=== PATIENT | male | born 1990 | race Caucasian/White ===

== ENCOUNTER 2017-12-23 17:28 | Inpatient (IN) | payer BC, OTHER ==
[~2017-12-23] VITALS: Ht 180.3 cm; Wt 72.1 kg
[2017-12-23] MEDS ORDERED: MAG HYDROX/AL HYDROX/SIMETH 30 ML LIQUID UDC PO PRN (18:30)
[2017-12-23] MEDS ORDERED: MIRALAX 17 GM POWD.PACK PO PRN (18:30)
[2017-12-23] MEDS ORDERED: BUPRENORPHINE HCL 2 MG TAB.SUBL SL PRN (18:30)
[2017-12-23] MEDS ORDERED: LORAZEPAM 2 MG/1 ML VIAL IM PRN (18:30)
[2017-12-23] MEDS ORDERED: DICYCLOMINE HCL 20 MG TABLET PO PRN (18:30)
[2017-12-23] MEDS ORDERED: ONDANSETRON 4 MG/2 ML VIAL IM PRN (18:30)
[2017-12-23] MEDS ORDERED: ONDANSETRON ODT 4 MG TAB.RAPDIS SL PRN (18:30)
[2017-12-23] MEDS ORDERED: ACETAMINOPHEN 325 MG TABLET PO PRN (18:30)
[2017-12-23] MEDS ORDERED: MAGNESIUM HYDROXIDE 30 ML LIQUID UDC PO PRN (18:30)
[2017-12-23] MEDS ORDERED: LOPERAMIDE HCL 2 MG CAPSULE PO PRN ×2 (18:30)
[2017-12-23] MEDS ORDERED: LORAZEPAM 1 MG TABLET PO PRN ×2 (18:30)
[2017-12-23 19:02] LABS: ETHANOL < 3 MG/DL (0-0)
[2017-12-23 19:07] LABS: ALANINE AMINOTRANSFERASE 34 U/L (16-63); ALKALINE PHOSPHATASE 94 U/L (50-136); ASPARTATE AMINOTRANSFERASE 21 U/L (15-37); BILIRUBIN,TOTAL 0.2 mg/dL (0.2-1.0); CARBON DIOXIDE 33 mmol/L (21-32); CHLORIDE 104 mmol/L (98-107); GLUCOSE 99 mg/dL (74-106); MAGNESIUM 1.9 mg/dL (1.8-2.4); POTASSIUM 4.4 mmol/L (3.5-5.1); TOTAL PROTEIN, SERUM 6.9 g/dL (6.4-8.2); UREA NITROGEN, BLOOD 14 mg/dL (7-18)
[2017-12-23 19:13] LABS: *AMPHETAMINE, URINE NEGATIVE (NEGATIVE); *BARBITURATE, URINE POSITIVE (NEGATIVE); *CANNABINOID, URINE NEGATIVE (NEGATIVE); *COCCAINE, URINE NEGATIVE (NEGATIVE); *OPIATE, URINE NEGATIVE (NEGATIVE); *PHENCYCLIDINE SCREEN,URINE NEGATIVE (NEGATIVE); BASOPHILS % (AUTO) 0.4 % (0.0-2.0); EOSINOPHILS # (AUTO) 0.2 K/uL (0.0-0.7); EOSINOPHILS % (AUTO) 2.3 % (0.0-7.0); HEMATOCRIT 46.1 % (36.7-47.1); HEMOGLOBIN 15.6 g/dL (12.5-16.3); LYMPHOCYTES # (AUTO) 2.1 K/uL (20.0-40.0); MEAN CORPUSCULAR HEMOGLOBIN 30.6 uug (23.8-33.4); MEAN CORPUSCULAR HGB CONC 34 g/dL (32.5-36.3); MEAN CORPUSCULAR VOLUME 90.6 fL (73.0-96.2); MONOCYTES # (AUTO) 0.5 K/uL (2.0-10.0); MONOCYTES % (AUTO) 5.6 % (0.0-11.0); NEUTROPHILS # (AUTO) 6.7 K/uL (1.8-8.9); NEUTROPHILS % (AUTO) 69.7 % (38.5-71.5); PLATELET COUNT (AUTO) 156 K/uL (152-348); RED BLOOD CELL COUNT(AUTO) 5.09 MIL/uL (4.06-5.63); WHITE BLOOD COUNT (AUTO) 9.6 K/uL (3.6-10.2)
[2017-12-23 19:17] LABS: THYROID STIMULATING HORMONE 2.055 mIU/mL (0.358-3.740)
--- NOTE | 2017-12-23 19:21 | NUR ---
PRE-ADMISSION NOTE RECEIVED PT AT INTAKE AT 1827 ON 12/23/17. INITIAL VS WERE BP: 107/73, HR: 94, RR: 18, O2 SAT: 96%, T: 98.6. PT IS SOFT SPOKEN, APPEARS HIGHLY ANXIOUS, DIAPHORETIC, HAS FACIAL FLUSHING, VOLUNTARILY SHAKING HIS LEGS, PT STATES DUE TO ANXIETY. PT REPORTS CHILLS, COLD/HOT SWEATS, RESTLESSNESS, BODY ACHES, ANXIETY. PT REPORTS HAVING BACK AND KNEE PAIN 06/22. PT IS THE PRIMARY SOURCE OF INFORMATION. PT IS FULLY AMBULATORY. PT STATES HE IS ALLERGIC TO PCN- BODY HIVES, AND TRAZODONE- SVT. PT REPORTS HAVING A MEDICAL HX OF HASHIMOTOS THYROIDITIS, INAPPROPRIATE SINUS TACHYCARDIA, INSOMNIA. PT REPORTS FATHER HAD A ETOH HX OF SUBSTANCE ABUSE, GRAVES DX, HTN. MOM HAS HYPOTHYROIDISM. PT HAS 3 BROTHERS, ONE BROTHER HAS SCLERODERMA. PT STATES DR. NUNES IS HIS PCP. PT REPORTS NO HX OF SZ. PT STATES THIS IS HIS SECOND TIME IN TREATMENT, FIRST TX WAS IN AT [facility] IN [place]. PT STATES THE LONGEST SOBRIETY WAS 4 MONTHS UP UNTIL AT MONTH AGO WHEN HE RELASPED. PT REPORTS HE WAS USING OPIATES AND BENZOS ON A DAILY BASIS FOR A MONTH. HE TRIED TO QUIT WITH THE HELP OF A PHYSICIAN WHO PRESCRIBED HIM SUBUTEX AND PHENOBARBITAL AND HAS BEEN USING FOR 6 DAYS BEFORE COMING TO [facility] WITHOUT RELIEF FROM W/D. SUBSTANCE USE HX: 1. OPIATES- COUNTERFEIT OXYCODONE, FENTANYL BEING ONE OF THE INGREDIENT USED; SNORTING, 10-15 PILLS DAILY FOR 1 MONTH. FIRST USED OPIATES AT AGE 23 Y/O. 2. BENZO- XANAX 8 MG DAILY FOR 1 MONTH. FIRST STARTED USING RECENTLY IN 2016. WILL GIVE ALL PERTINENT INFORMATION AND ENDORSEMENT TO FILLER WIPER NURSE.
[2017-12-23] MEDS: LORAZEPAM 1 MG TABLET PO SCH ×2 (19:25→22:16)
--- NOTE | 2017-12-23 19:30 | NUR ---
ADMISSION NOTE Pt is a 27 y/o male admitted today for opiate and benzo withdrawal. Intake assessment and skin/body check completed by day shift nurse. Pt is full code, allergic to PCN and Trazodone, regular diet and on fall/seizure precautions. Pt reports PMH of IST (Inappropriate sinus tachycardia), Rheumatoid arthritis, melany's thyroiditis and insomnia. Denies being hospitalized or in retirement in past 30 days, does not qualify for MRSA swab. Pt smokes 0.5-1 pack daily. Pt brought the following home medications: Mirtazapine, gabapentin, hydroxyzine pamoate, diltiezam, hydrochloroquine and rozerem. Pt reports that he was in a detox facility [facility] in [place] and given detox medications Subutex, Phenobarbital and Klonopin between December 17-2017. Pt states he was d/c last night and was sent to [facility] treatment facility but then was referred to further detox assistance d/t continued withdrawal S/S. Pt reports having 4 months sober then relapsing a week ago. Pt provided UDS and lab work. Substance History is as follows: 1. Oxycodone with fentanyl pills via nasal inhalation 300-400 mg daily, last intake on 12/16/17, at this rate for 3 weeks. 2. Xanax PO 8 mg daily, last intake of 12/16/17, at this rate for 3 weeks. Pt reports the following family hx: Father-ETOH and graves disese, HTN, Mother-hypothyroid, brother-scleroderma. Pt reports treatment history x 2 at [facility] in [place] between December 17 and in July 2017. 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 Pt is A&O x 4, ambulatory with steady gait, denies SI/HI. Pt presents with restlessness, anxiety, agitation, depressed affect, body aches 6/10, intermittent nausea, difficulty sleeping, chills, cold sweats, dysphoria and anhedonia. Skin intact, no edema noted. PERRLA. Respirations even and unlabored. Lung sounds clear. Denies chest pain or SOB. Abdomen is soft, non-tender. Bowel sounds active in all 4 quadrants. Safety measures in place, side rails up x 2, bed locked. Call light within reach. Medications due. Will continue to monitor.
[2017-12-23 20:00] VITALS: BP 109/77
[2017-12-23] MEDS: CLONIDINE HCL 0.1 MG TABLET PO PRN (21:41)
[2017-12-23] MEDS: GABAPENTIN 300 MG CAPSULE PO SCH (21:41)
[2017-12-23] MEDS: METHOCARBAMOL 750 MG TABLET PO PRN (21:41)
[2017-12-23] MEDS: diphenhydrAMINE 50 MG CAPSULE PO PRN (21:41)
--- NOTE | 2017-12-23 21:41 | NUR ---
PRN ROBAXIN, BENADRYL AND CLONIDINE ADMINISTRATION Pt reports body aches 6/10 and presents with restlessness, anxiety, agitation, sweats and chills. BP 109/77 HR 93. Pt also requests sleep aid. Safety measures in place. Call light within reach. Will continue to monitor.
--- NOTE | 2017-12-23 22:41 | NUR ---
PRN ROBAXIN, BENADRYL AND CLONIDINE REASSESSMENT Pt laying in bed with eyes closed. Respirations even and unlabored. Safety measures in place. Call light within reach. Will continue to monitor.
[2017-12-24] VITALS (8 sets, daily range): BP systolic 98–122; BP diastolic 58–78
--- NOTE | 2017-12-24 | NUR ---
COWS/CIWA DEFERRED Pt laying in bed with eyes closed, COWS/CIWA deferred, to be assessed when pt is awake per orders. Respirations even and unlabored. Safety measures in place. Call light within reach. Will continue to monitor.
[2017-12-24] MEDS ORDERED: GABA-536 PO (02:26)
[2017-12-24] MEDS ORDERED: METH-406 PO ×2 (02:26→20:27)
[2017-12-24] MEDS ORDERED: HYDR200T4 PO (02:26)
[2017-12-24] MEDS ORDERED: MIRT30TA7 PO (02:26)
[2017-12-24] MEDS ORDERED: HYDR50CA5 PO (02:26)
[2017-12-24] MEDS ORDERED: DILT240C2 PO (02:26)
[2017-12-24] MEDS ORDERED: RAME8TAB15 PO (02:26)
[2017-12-24] MEDS: IBUPROFEN 600 MG TABLET PO PRN ×2 (05:08→20:50)
[2017-12-24] MEDS: CLONIDINE HCL 0.1 MG TABLET PO PRN ×2 (05:09→20:49)
--- NOTE | 2017-12-24 05:09 | NUR ---
PRN EDILIA, MOTRIN, ATIVAN 1 MG, CLONIDINE ADMINISTRATION Pt presents with stomach cramps, generalized body pain, chills, sweats, restlessness, difficulty sleeping and agitation. CIWA 9. Safety measures in place. Call light within reach. Will continue to monitor.
--- NOTE | 2017-12-24 06:09 | NUR ---
PRN BENTYL, MOTRIN, ATIVAN 1 MG AND CLONIDINE REASSESSMENT Pt is laying in bed with eyes closed. CIWA assessment deferred, to be assessed when pt is awake per orders. Respirations even and unlabored. Safety measures in place. Call light within reach. Will continue to monitor.
--- NOTE | 2017-12-24 07:30 | NUR ---
END OF SHIFT Pt is a 27 y/o male admitted on 12/23/17 for benzo and opiate withdrawal. Pt came in from a detox facility [facility] in [place] and given detox medications Subutex, Phenobarbital and Klonopin between December 17-2017, but came here instead of treatment at [facility] d/t persistent withdrawal S/S. Pt is not on an ordered taper, PRN Ativan and Subutex available. Pt presented with restlessness, anxiety, agitation, depressed affect, body aches 6/10, intermittent nausea, stomach cramps, difficulty sleeping, chills, cold sweats, dysphoria and anhedonia. Pt refused Zofran odt. Pt requested additional blanket d/t chills. Scheduled medications and PRN Robaxin, Benadryl, bentyl, motrin, Ativan 1 mg and clonidine x 2 administered, effective in S/S of withdrawal as verbalized by pt. Last COWS 9 and CIWA 9. Pt slept 6 hours intermittently. Intake 1000 ml, void x 1, stool x 0. Safety measures in place. Call light within reach. Pts needs have been met. Endorsed to day shift nurse.
--- NOTE | 2017-12-24 08:12 | NUR ---
BEGINNING OF SHIFT Patient endorsement report received from signal system testing maintainer nurse, all pertinent information discussed. Patient is a 27 year old male with admitting Dx: Opiate/bzo withdrawal. Patient continues under very close observation, currently with no ongoing taper, but has PRN medications as needed for s/sx of withdrawal. will monitor closely. Per signal system testing maintainer patient with last ciwa score of: 9, last cow score of: 9. Received PRN: Ativan, Robaxin, Benadryl, Clonidine x2, Bentyl and Motrin, per signal system testing maintainer medications were effective, Slept for 6 hours, Fall and seizure precautions observed at all times. Patient received awake, alert and oriented x4, educated regarding plan of care for the day, will continue to monitor closely. safety measures in place.
[2017-12-24] MEDS ORDERED: TUBERCULIN,PURIF.PROT.DERIV. 5 TU/0.1 ML TEST ID ONE (09:00)
[2017-12-24] MEDS ORDERED: LORAZEPAM 1 MG TABLET PO SCH (09:00)
[2017-12-24] MEDS: GABAPENTIN 300 MG CAPSULE PO SCH ×3 (09:03→20:50)
[2017-12-24] MEDS: METHOCARBAMOL 750 MG TABLET PO PRN ×2 (09:03→20:50)
[2017-12-24] MEDS: HYDROXYZINE PAMOATE 25 MG CAPSULE PO PRN ×3 (09:04→20:50)
--- NOTE | 2017-12-24 09:04 | NUR ---
PRN ROBAXIN/BENTYL/TYLENOL Patient reports muscle aches, and generalized pain 7/10. patient also reports muscle cramps. Administered Robaxin 750mg PO and Tylenol 650mg Po as ordered, and Bentyl as ordered, will monitor effectiveness of medications.
--- NOTE | 2017-12-24 09:58 | NUR ---
REFUSED PPD Patient refused PPD, Per patient had done less than a year ago and it was negative, md aware.
--- NOTE | 2017-12-24 10:04 | NUR ---
ROBAXIN/BENTYL/TYLENOL REASSESSMENT Patient reports medication effective, decrease in muscle aches, decrease in generalized body pain, current pain level 2/10, tolerable as per patient. Also reports no further stomach cramps. will continue to monitor.
[2017-12-24] MEDS: HYDROXYCHLOROQUINE 200MG TAB PO SCH (10:55)
[2017-12-24] MEDS: DILTIAZEM 240 MG PO SCH (10:55)
--- NOTE | 2017-12-24 16:13 | NUR ---
PRN VISTARIL Patient reports increase anxiety, provided with non pharmacological interventions with no relief, administered Vistaril as ordered.
--- NOTE | 2017-12-24 19:12 | NUR ---
END OF SHIFT Patient alert and oriented x4, appears with anxious affect, patient with worried and anxious facial expression. Patient easily overwhelmed. Patient noted guarded and worried, with episodes of pacing in hallways, patient was provided with non pharmacological intervention as needed with relief. Patient completed modified Ativan taper, this morning, well tolerated, no ASE noted. Patient is scheduled to be discharged tomorrow [place], noted self motivated towards sobriety. Patient with initial ciwa score of: 10, and cow score of: 6, last cow score of: 4 and last ciwa score of: 4. Patient presented with: restlessness, mild bone and joint aches, irritability, anxiety and flushed. Patient received PRN: vistaril, Robaxin and Tylenol during shift medications were effective. Patient was encouraged adequate PO fluid intake as tolerated, patient encouraged to develop coping skills and utilization of non pharmacological interventions. Patient was encouraged to participate in therapy session.Encouraged diversional activities to alleviate anxiety. Denies any SI/HI. Safety measures are in place. Call light kept with in reach, continues under close observation. Patient endorsed to scene shifter nurse, all pertinent information was discussed. Will continue to monitor.
--- NOTE | 2017-12-24 19:30 | NUR ---
START OF SHIFT Pt is a 27 y/o male admitted on 12/23/17 for benzo and opiate withdrawal. Pt is scheduled to be d/c tomorrow. Upon assessment pt presents with restlessness, anxiety, agitation, depressed affect, body aches and back pain /10, chills, cold sweats, dysphoria and anhedonia. Safety measures in place. Call light within reach. Medications due. Will continue to monitor.
[2017-12-24] MEDS ORDERED: GABA-534 PO (20:27)
[2017-12-24] MEDS ORDERED: DICY20TA28 PO (20:27)
[2017-12-24] MEDS ORDERED: CLON0.1T14 PO (20:27)
[2017-12-24] MEDS ORDERED: DIPH50CA37 PO (20:27)
[2017-12-24] MEDS ORDERED: MIRT15TA7 PO (20:27)
[2017-12-24] MEDS ORDERED: IBUP-1955 PO (20:27)
[2017-12-24] MEDS ORDERED: HYDR-3895 PO (20:27)
[2017-12-24] MEDS: diphenhydrAMINE 50 MG CAPSULE PO PRN (20:50)
--- NOTE | 2017-12-24 20:50 | NUR ---
PRN CLONIDINE, VISTARIL, ROBAXIN, MOTRIN AND BENADRYL ADMINISTRATION Pt presents with anxiety, agitation, irritability, restlessness and reports body aches 6/10 and back pain 6/10. BP 113/71 HR 113. Pt requests sleep aid for insomnia. Safety measures in place. Call light within reach. Will continue to monitor.
[2017-12-24] MEDS ORDERED: MIRTAZAPINE 15 MG TABLET PO SCH (21:00)
--- NOTE | 2017-12-24 21:50 | NUR ---
PRN CLONIDINE, VISTARIL, ROBAXIN, BENADRYL AND MOTRIN REASSESSMENT Pt laying in bed with eyes closed, medications noted effective. Safety measures in place. Respirations even and unlabored. Will continue to monitor.
--- NOTE | 2017-12-25 | NUR ---
COWS/CIWA DEFERRED AND VITALS REFUSED Pt laying in bed with eyes closed, COWS/CIWA deferred, to be assessed when pt is awake per orders. Vitals refused. Respirations even and unlabored. Safety measures in place. Call light within reach. Will continue to monitor.
--- NOTE | 2017-12-25 07:23 | NUR ---
END OF SHIFT Pt is a 27 y/o male admitted on 12/23/17 for benzo and opiate withdrawal. Pt is scheduled to be d/c today. Pt presented with restlessness, anxiety, agitation, depressed affect, body aches and back pain 04/22, chills, cold sweats, difficulty falling and staying asleep, dysphoria and anhedonia. Scheduled medications and PRN Clonidine, Vistaril, Robaxin, Benadryl and Motrin administered, effective in S/S of withdrawal as verbalized by pt. pt woke up around 0400 and was unable to go back to sleep. Last COWS 5 and CIWA 6. Pt slept 7 hours. Intake 1300 ml, void x 2, stool x 0. Safety measures in place. Call light within reach. Pts needs have been met. Endorsed to day shift nurse.
--- NOTE | 2017-12-25 07:30 | NUR ---
start of shift note: received pt from mini shifter nurse, pt is in stable condition at this time no s/s of pain or discomfort. pt is admitted to [facility] for opiate/benzo withdrawal/dependence. pt is set to discharge today will assist pt in discharging and continue to monitor pt for any changes
[2017-12-25] MEDS: HYDROXYCHLOROQUINE 200MG TAB PO SCH (08:23)
[2017-12-25] MEDS: GABAPENTIN 300 MG CAPSULE PO SCH (08:23)
[2017-12-25] MEDS: DILTIAZEM 240 MG PO SCH (08:23)
[2017-12-25] MEDS: IBUPROFEN 600 MG TABLET PO PRN (08:28)
--- NOTE | 2017-12-25 09:28 | NUR ---
discharge note: pt left the unit in stable condition no s/s of moderate withdrawal, pt with complaints of body stiffness and aches requested for motrin and administered per order, no A/r noted. pt teaching administered and pt verbalized understanding. pt will be transferred to [facility]
[2017-12-25 13:06] LABS: HEPATITIS B SURFACE AG Negative (Negative)
== END 2017-12-25 09:28 | disposition other institution (70) | DRG 895 ==
LOC: SRC 17:28
PROVIDERS: ADMIT Internal Medicine; ATTEND Internal Medicine
PROC: HZ2ZZZZ Detoxification Services for Substance Abuse Treatment (ICD-10-PCS; principal; 2017-12-23)
PROC: HZ41ZZZ Group Counseling for Substance Abuse Treatment, Behavioral (ICD-10-PCS; 2017-12-24)
DX: F13.230 Sedative, hypnotic or anxiolytic dependence with withdrawal, uncomplicated (principal); E87.3 Alkalosis; F39 Unspecified mood [affective] disorder; E06.3 Autoimmune thyroiditis; F10.21 Alcohol dependence, in remission; F17.210 Nicotine dependence, cigarettes, uncomplicated; F11.23 Opioid dependence with withdrawal; M06.9 Rheumatoid arthritis, unspecified; Z81.1 Family history of alcohol abuse and dependence; G47.00 Insomnia, unspecified; F41.9 Anxiety disorder, unspecified; Z88.0 Allergy status to penicillin; I10 Essential (primary) hypertension; E86.0 Dehydration
CPT/HCPCS: 36415; 70030-TC; 80307; 80345; 83735; 84443; 85025; 86592; 86705; 86803; 87340; 87806; A4663; G0480; Q0162; Q0163